=== PATIENT | male | born 1970 | race Caucasian/White ===

== ENCOUNTER → 2023-09-01 | Outpatient (CLI) | payer OTHER | LOC: M PLAIMG 13:57 | PROVIDERS: ATTEND Internal Medicine Critical Care Medicine | DX: R91.8 Other nonspecific abnormal finding of lung field (principal) ==

== ENCOUNTER → 2023-10-26 | Outpatient (CLI) | payer OTHER | LOC: M RAD 15:08 | PROVIDERS: ATTEND Internal Medicine Critical Care Medicine | DX: R91.8 Other nonspecific abnormal finding of lung field (principal) ==

== ENCOUNTER → 2024-04-15 | Outpatient (CLI) | payer OTHER ==
[~2024-04-15] MED LIST: ISOVUE-M 300 61% 15ML VIAL As Ordered ONE
[2024-04-15 08:10] VITALS: TEMP 98
[2024-04-15 10:53] VITALS: BP 107/58; O2SAT 97
== END ==
LOC: M IRPRO 07:55
PROVIDERS: ATTEND Physician Assistant
DX: M43.26 Fusion of spine, lumbar region (principal); M25.78 Osteophyte, vertebrae
CPT/HCPCS: 62304; 72131; Q9967

== ENCOUNTER → 2024-06-06 | Outpatient (CLI) | payer OTHER ==
[~2024-06-06] MED LIST changes: +LIDOCAINE 1% MDV 20ML VIAL As Ordered ONE
[2024-06-06 08:50] VITALS: TEMP 97.9
[2024-06-06 11:46] VITALS: BP 156/85; O2SAT 98
== END ==
LOC: M IRPRO 08:40
PROVIDERS: ATTEND Physician Assistant
DX: M43.26 Fusion of spine, lumbar region (principal); M48.061 Spinal stenosis, lumbar region without neurogenic claudication
CPT/HCPCS: 62304; 72131; Q9967

== ENCOUNTER → 2025-02-22 | Outpatient (CLI) | payer OTHER | LOC: M RAD 14:07 | PROVIDERS: ATTEND Nurse Practitioner | DX: E83.52 Hypercalcemia (principal); N28.1 Cyst of kidney, acquired ==

== ENCOUNTER → 2025-03-02 | Outpatient (CLI) | payer OTHER | LOC: M RAD 13:28 | PROVIDERS: ATTEND Nurse Practitioner Family | DX: Z87.891 Personal history of nicotine dependence (principal) ==

== ENCOUNTER → 2025-03-24 | Outpatient (CLI) | payer OTHER | LOC: M RAD 13:08 | PROVIDERS: ATTEND Nurse Practitioner Family | DX: M54.16 Radiculopathy, lumbar region (principal) ==